=== PATIENT | female | born 1960 | race Two or more races ===

== ENCOUNTER → 2024-11-12 12:54 | Outpatient (REF) | payer OTHER, SELFPAY ==
--- NOTE | 2024-11-12 13:01 | CA_ITS ---
Transthoracic Echocardiogram Patient (Last, First, Middle): Deborah Bishop F Gender: Female Date of : 1960 Age: 64 Procedure Date: 11/12/2024 Procedure Type: Transthoracic Echocardiogram Location: OP Height: 175. cm Weight: 74.84 kg BSA: 1.90 m2 Heart Rate: 55 bpm BP: 125 / 60 mmHg [place]: JAMES Chacko MD: Az Lezama MD Accounts Payable Payroll Coordinator: Khoi Stout MD Symptoms: R06.09 HEREDIA Study Quality: Adequate ECG Rhythm: Bradycardia Conclusions: - Essentially normal study Findings Left Ventricle Normal left ventricular size, thickness, and systolic function. The visually estimated ejection fraction is between 65-70%. Spectral Doppler is indicative of a normal filling pattern. Right Ventricle Normal right ventricular cavity size and systolic function. Atria Both atria are normal in size. There is lipomatous hypertrophy of the interatrial septum. There is no evidence of interatrial shunt. Aortic Valve Normal aortic valve structure and function. There is no aortic valve stenosis. There is no aortic valve regurgitation. Mitral Valve Normal mitral valve structure and function. There is trace mitral valve regurgitation. There is no mitral valve stenosis. Pulmonic Valve The pulmonic valve is likely normal. Tricuspid Valve Normal tricuspid valve structure. There is trace tricuspid valve regurgitation. The right ventricular systolic pressure is normal. Normal right atrial pressure. There is no evidence of pulmonary hypertension. Great Vessels All visible segments of the aorta are normal in size. The pulmonary artery was not well visualized. Venous The inferior vena cava is normal in size and collapses greater than 50% with inspiration. Pericardium/Pleural There is no evidence of pericardial effusion. Prior Study Comparison No prior study available for comparison. Measurements 2D Linear Measurements IVSd: 0.95 0.6-0.9/0.6-1.0 cm LVIDd: 4.52 3.9-5.3/4.2-5.9 cm LVIDd Index: 2.38 2.4-3.2/2.2-3.1 cm/m2 LVIDs: 3.05 2.0-3.6 cm LVPWd: 0.82 0.7-1.1 cm LA Diam: 3.60 2.7-3.8/3.0-4.0 cm LAIDs Index: 1.89 1.5-2.3 cm/m2 LV Mass: 163.76 67-162/88-224 g LV Mass Index: 86.19 43-95/49-115 g/m2 LVOT Diam: 2.10 3.0+(-)1.3 cm 2D Systolic Function EF 4C: 74.00 >55% EF 2C: 66.30 >55% EF BiP: 70.50 >55% Mitral Valve MV Pk E: 0.96 MV PK A: 0.71 MV Decel Time: 160.00 E/A: 1.30 E'Lateral: 9.68 E'Medial: 6.96 E/E' Med: 13.80 E/E' Lat: 9.90 PHT: 47.00 MVA PHT: 4.68 Decel [place]: 5.97 Aortic Valve AoV Pk Jaspreet: 1.26 AoV Mn Jaspreet: 0.89 AoV VTI: 0.29 AoV Pk Grad: 6.00 Aov Mn Grad: 4.00 ROXY Cont.VTI: 2.77 LVOT LVOT Pk Jaspreet: 0.94 LVOT Mn Jaspreet: 0.67 LVOT VTI: 0.23 LVOT Pk Grad: 4.00 LVOT Mn Grad: 2.00 LVOT Diam: 2.10 LVOT Area: 3.46 Diastolic Function MV Pk E: 0.96 MV Pk A: 0.71 E/A: 1.30 E'Medial: 6.96 E/E' Med: 13.80 E' Laterial: 9.68 E/E' Lat: 9.90 Right Ventricle TAPSE (mm): 18.80 TVS' Jaspreet: 9.36 Tricuspid Valve TR Pk Jaspreet: 1.84 TR Pk Grad: 14.00 RA Press: 3.00 RVSP: 17.00 Great Vessels Aorta Sinus of Valsalva: 3.00 2.0-3.5 cm Ao Asc: 3.20 2.1-3.4 cm Ao Arch: 2.60 Pulmonary Valve PV Pk Jaspreet: 1.41 Peak PV Grad: 8.00 Updated in Other Vendor System with Status of Final Khoi Stout MD electronically signed on 11/12/2024 6:40:38 PM with status of Final
--- OUTSIDE RECORDS SUMMARY | 2024-11-12 15:07 | XMS_ITS | Data Portability ---
Author Organization [place] - [facility],, DANUTA SPANGLER MD Address [address] [address] Care Team Providers Care Airport Shuttle Driver Name Role Phone SYDNEE ALVARENGA Primary Care Provider [phone] Assessment No assessment recorded. Plan of Treatment Reminders Order Date Submit Date Provider Last Modified By Organization Details Last Modified Time Details Appointments None recorded . Lab cytology report, thin prep, smear or scraping , cervical or vaginal 2023 024 DARIEL [facility] (Centralized Electronic Ordering - All Locations), Patient Can Go To The Location Of Their Choice, [id number] 4 12:12:33 pap test, thinprep , cervical 2022 023 [facility] (Centralized Electronic Ordering - All Locations), Patient Can Go To The Location Of Their Choice, [address] 3 07:41:17 fecal occult blood, stool 2022 023 [email or web address] In-Office Order, Internal Use Only DO Not Attach Compendium DO Not Attach Compendium, Do Not Delete/merge, [id number] 3 09:14:54 pap test, thinprep , cervical 2021 022 [facility], Cytopathology Service, [address] [facility], [place], [address], 2 07:50:34 fecal occult blood, stool 2021 022 [email or web address] 1 In-Office Order, Internal Use Only DO Not Attach Compendium DO Not Attach Compendium, Do Not Delete/merge, [id number] 2 09:02:38 urinalys is, dipstick 2020 021 [email or web address] 1 In-Office Order, Internal Use Only DO Not Attach Compendium DO Not Attach Compendium, Do Not Delete/merge, [id number] 1 10:26:54 culture, urine 2020 021 ABILENE [facility], [address] [place], [address], 1 10:40:16 pap test, thinprep , cervical 2020 021 [facility], Cytopathology Service, [address] [place], [address], 1 07:49:12 fecal occult blood, stool 2020 021 [email or web address] 1 In-Office Order, Internal Use Only DO Not Attach Compendium DO Not Attach Compendium, Do Not Delete/merge, [id number] 1 10:26:54 Referral None recorded . Procedures None recorded . Surgeries None recorded . Imaging MAMMO, screenin g, digital, bilatera l - Breast Aspirati on and/or Biopsy if needed 2023 024 [facility], [address], [address], [place], [address], 4 10:00:30 MAMMO, screenin g, digital, bilatera l - Breast Aspirati on and/or Biopsy if needed 2022 023 [facility], [address], [place], [address], 4 13:36:09 MAMMO, screenin g, digital, bilatera l 2021 022 [facility]), [address], [place], [address], 4 07:45:48 MAMMO, screenin g, digital, bilatera l 2020 021 [facility]), [address], [place], [address], 1 15:06:31 Medication Orders estradio l 0.01% (0.1 mg/gram) vaginal cream 2023 024 [facility], [address] [place] [address], [address], 4 09:26:45 estradio l 1 mg tablet 2023 024 [facility], [address] [place] [address], [address], 4 09:28:23 progeste ashley microniz ed 200 mg capsule 2023 024 [facility], [address] [place] [address], [address], 4 09:28:26 progeste ashley microniz ed 200 mg capsule 2022 023 [facility], [address] [place] [address], [address], 3 09:05:23 estradio l 1 mg tablet 2022 023 [facility], [address] [place] [address], [address], 3 09:05:24 progeste ashley microniz ed 200 mg capsule 2021 022 [facility], [address] [place] [address], [address], 2 09:03:03 estradio l 1 mg tablet 2021 022 [facility], [address] [place] [address], [place], [address], 09:03:05 estradio l 1 mg tablet 2020 021 [facility] #[id number], [address] [place], [address], 10:26:57 progeste ashley barcenas ed 200 mg capsule 2020 021 [facility] #[id number], [address] [place], [address], 10:26:57 Patient TargetsNo targets recorded. Patient Instructions Encounter Date Encounter Id Patient Instructions Last Modified By Organization Details Last Modified Time 11/13/2020 [id number] urinary tract infection in women information Not available 11/13/2020 10:26:54 learning about healthy weight Not available 11/13/2020 10:26:54 She is here for annual exam, is doing well on the HRT and elects to continue. She appears to be doing well. We discussed having her continue to take hormone replacement therapy. We discussed the need to take a progestin if a uterus is present, and the rationale behind that. We discussed the stated risks of one in 10,000 of development of a blood clot/DVT/PE that could be life threatening. We discussed the Women's Health Initiative study and the findings. We discused the PEPPI study as well. She is aware that there are conflicting reports in the medical literature concerning the risks and benefits of HRT. We disussed that women are advised by ACOG to take HRT in the lowest dose necessary, and for the shortest time necessary, to control their symptoms. After a long discussion of the potential risks and benefits of HRT she elects to continue HRT. All questions were answered. Rx for HRT is called in to the pharmacy. Call if any vaginal bleeding occurs upon initiation of HRT, or at any time postmenopausally. kristi Not available 11/13/2020 10:27:19 11/15/2021 [id number] learning about healthy weight Not available 11/15/2021 09:02:38 She is here for annual exam, is doing well on the HRT and elects to continue. She started HRT in 2013. She is going to try to wean down to 0.5 mg of estradiol daily in the wintertime and see if this dose works for her. We discussed having her continue to take hormone replacement therapy. We discussed the need to take a progestin if a uterus is present, and the rationale behind that. We discussed the stated risks of one in 10,000 of development of a blood clot/DVT/PE that could be life threatening. We discussed the Women's Health Initiative study and the findings. We discused the PEPPI study as well. She is aware that there are conflicting reports in the medical literature concerning the risks and benefits of HRT. We disussed that women are advised by ACOG to take HRT in the lowest dose necessary, and for the shortest time necessary, to control their symptoms. After a long discussion of the potential risks and benefits of HRT she elects to continue HRT. All questions were answered. Rx for HRT is called in to the pharmacy. Call if any vaginal bleeding occurs upon initiation of HRT, or at any time postmenopausally. Not available 11/15/2021 09:04:01 11/16/2022 [id number] learning about healthy weight Not available 11/16/2022 09:04:55 She is here for annual, doing well on her HRT. __ Note from 2021: She is here for annual exam, is doing well on the HRT and elects to continue. She started HRT in 2013. She is going to try to wean down to 0.5 mg of estradiol daily in the wintertime and see if this dose works for her. We discussed having her continue to take hormone replacement therapy. We discussed the need to take a progestin if a uterus is present, and the rationale behind that. We discussed the stated risks of one in 10,000 of development of a blood clot/DVT/PE that could be life threatening. We discussed the Women's Health Initiative study and the findings. We discused the PEPPI study as well. She is aware that there are conflicting reports in the medical literature concerning the risks and benefits of HRT. We disussed that women are advised by ACOG to take HRT in the lowest dose necessary, and for the shortest time necessary, to control their symptoms. After a long discussion of the potential risks and benefits of HRT she elects to continue HRT. All questions were answered. Rx for HRT is called in to the pharmacy. Call if any vaginal bleeding occurs upon initiation of HRT, or at any time postmenopausally. Not available 11/16/2022 09:05:08 11/20/2023 [id number] atrophic vaginitis: care instructions Not available 11/20/2023 09:29:07 learning about healthy weight Not available 11/20/2023 09:27:56 She is here for annual, doing well on her HRT, did not want to try going down to the 0.5 mg estradiol last year as she already doesn't have enough hormones some nights. She has started getting tears in the skin of the vaginal introitus after intercourse. note from 2022: She is here for annual, doing well on her HRT. __ Note from 2021: She is here for annual exam, is doing well on the HRT and elects to continue. She started HRT in 2013. She is going to try to wean down to 0.5 mg of estradiol daily in the wintertime and see if this dose works for her. She appears to be doing well. She will return for discussion of possibly adding in estradiol vaginally. We discussed having her continue to take hormone replacement therapy. We discussed the need to take a progestin if a uterus is present, and the rationale behind that. We discussed the stated risks of one in 10,000 of development of a blood clot/DVT/PE that could be life threatening. We discussed the Women's Health Initiative study and the findings. We discused the PEPPI study as well. She is aware that there are conflicting reports in the medical literature concerning the risks and benefits of HRT. We disussed that women are advised by ACOG to take HRT in the lowest dose necessary, and for the shortest time necessary, to control their symptoms. After a long discussion of the potential risks and benefits of HRT she elects to continue HRT. All questions were answered. Rx for HRT is called in to the pharmacy. Call if any vaginal bleeding occurs upon initiation of HRT, or at any time postmenopausally. haresh Not available 11/20/2023 09:28:50 12/14/2023 [id number] atrophic vaginitis: care instructions [email or web address] Not available 12/14/2023 09:26:19 She is here for a complaint of vaginal dryness and dyspareunia. She notes that they use a lubricant, but she still gets smal skin tears during intercourse. She would like to discuss possible vaginal estradiol therapy. We discussed the options of cream, tablets or ring and after discussion she prefers the cream. Risks and benefits discussed at length, all questions answered. Face to face discussion 25 minutes haresh Not available 12/14/2023 10:45:51 Reason for Referral None Reported. Results Created Date Observation Date Name Description Value Unit Range Abnormal Flag Note LastModifiedBy Organization Detail LastModifiedTime 11/14/19 21 11/13/2020 fecal occul t blood , stool Occult Blood negati ve Not Available In-Office Order Internal Use Only DO Not Attach Compendium DO Not Attach Compendium, Do Not Delete/merge, [id number] 11/13/2020 10:03:46 11/14/19 21 11/13/2020 cultu re, urine comments [facility], a membe r of [facility] [address] [place] [address] Medic al Dire susan fernandez MD NURSE D/O SOURC E: URINE ,NATALYA N CATCH ; Not Available [facility] [address] [place] [address], [address], 11/14/2020 10:40:15 11/14/19 21 11/14/2020 cultu re, urine urine culture [facility], a [facility] [address] [place] [address] Medic al Dire susan fernandez MD NURSE D/O COLLE CTION TIME: 2020 10:00 :00 AM -04:0 0 URINE CULTU RE No growt h F Not Available [facility] [address] [place], [address], 11/14/2020 10:40:15 11/14/19 21 11/13/2020 pap, LB [id number] ThinP rep Pap, Image d: NEGAT SWETHA FOR SQUAM OUS INTRA EPITH ELIAL LESIO N AND MALIG DELMY . Trinh Mal Rubio , CT( CP) (Case elect taylor rizzo magnolia d 11 19 2020) ADEQU ACY: Satis facto ry Endoc ervic al/tr ansfo rmati on zone compo nent absen t. SOURC E: ThinP rep Pap HPV IF Ascus : Refle x 16 and 18, Cervi maryanne, Image d CLINI MARYANNE INFOR MATIO N: HPV If Diagn osis of ASCUS . LPS neg, z12.4 , z01.4 19 Not Available [facility], Cytopathology Service [address] [place], [address], 11/20/2020 07:31:53 11/14/19 21 11/13/2020 urina lysis , dipst ick GLU Negati ve Not Available In-Office Order Internal Use Only DO Not Attach Compendium DO Not Attach Compendium, Do Not Delete/merge, [id number] 11/13/2020 10:04:15 11/14/19 21 11/13/2020 urina lysis , dipst ick MERCED Negati ve Not Available In-Office Order Internal Use Only DO Not Attach Compendium DO Not Attach Compendium, Do Not Delete/merge, 11/13/2020 10:04:15 11/14/19 21 11/13/2020 urina lysis , dipst ick KET Negati ve Not Available In-Office Order Internal Use Only DO Not Attach Compendium DO Not Attach Compendium, Do Not Delete/merge, 11/13/2020 10:04:15 11/14/19 21 11/13/2020 urina lysis , dipst ick SG 1.005 Not Available In-Office Order Internal Use Only DO Not Attach Compendium DO Not Attach Compendium, Do Not Delete/merge, [id number] 11/13/2020 10:04:15 11/14/19 21 11/13/2020 urina lysis , dipst ick BLO Hemoly zed : Trace Not Available In-Office Order Internal Use Only DO Not Attach Compendium DO Not Attach Compendium, Do Not Delete/merge, 11/13/2020 10:04:15 11/14/19 21 11/13/2020 urina lysis , dipst ick pH 6.0 Not Available In-Office Order Internal Use Only DO Not Attach Compendium DO Not Attach Compendium, Do Not Delete/merge, 11/13/2020 10:04:15 11/14/19 21 11/13/2020 urina lysis , dipst ick PRO Negati ve Not Available In-Office Order Internal Use Only DO Not Attach Compendium DO Not Attach Compendium, Do Not Delete/merge, 11/13/2020 10:04:15 11/14/19 21 11/13/2020 urina lysis , dipst ick URO 0.2 E.U. / dl Not Available In-Office Order Internal Use Only DO Not Attach Compendium DO Not Attach Compendium, Do Not Delete/merge, 11/13/2020 10:04:15 11/14/19 21 11/13/2020 urina lysis , dipst ick NIT negati ve Not Available In-Office Order Internal Use Only DO Not Attach Compendium DO Not Attach Compendium, Do Not Delete/merge, 11/13/2020 10:04:15 11/14/19 21 11/13/2020 urina lysis , dipst ick PERRI Negati ve Not Available In-Office Order Internal Use Only DO Not Attach Compendium DO Not Attach Compendium, Do Not Delete/merge, 11/13/2020 10:04:15 11/16/19 22 11/15/2021 PAP1C ASE [id number] ThinP rep Pap, Image d: NEGAT SWETHA FOR SQUAM OUS INTRA EPITH ELIAL LESIO N AND MALIG DELMY . Aysha Mcconnell hers , CT( CP) (Case elect taylor matthias magnolia d 11 23 2021) ADEQU ACY: Satis facto ry Endoc ervic al/tr ansfo rmati on zone compo nent absen t. SOURC E: ThinP rep Pap HPV IF Ascus : Refle x 16 and 18, Cervi maryanne, Image d CLINI MARYANNE INFOR DOMITILA N: HPV If Diagn osis of ASCUS . LPS neg, [z01. 419] Not Available [facility], Cytopathology Service [address] [place], [address], 11/23/2021 16:32:47 11/16/19 22 11/15/2021 fecal occul t blood , stool Occult Blood negati ve Not Available In-Office Order Internal Use Only DO Not Attach Compendium DO Not Attach Compendium, Do Not Delete/merge, [id number] 11/15/2021 08:47:47 11/17/19 23 11/16/2022 [facility] CYTOL OGY results Patinicolás nt Name: AMA BISHOP nt : 962 (Age: 62) Lab Acces marta #: [id number] Colle ction Date: 2022 Acces marta Date: 2022 Sign Out Date: 2022 Tissu e Sourc e: 1: THINP REP BALANCE RECESSER PAP TEST, CERVI MARYANNE: Final Diagn osis: NEGAT SWETHA FOR INTRA EPITH ELIAL LESIO N OR MALIG DELMY . Satis facto ry for evalu ation . Endoc ervic al/tr ansfo rmati on zone ABSEN T. Clini maryanne Histo ry: Date of Last Menst rual Perio d: not avail able Menst rual Histo ry: Post- menop ausal Contr acept swetha Histo ry: not avail able Ancil ellen Testi ng: HPV (ASCU S) Case image d by the ThinP rep Imagi ng Syste m with didi zaldivar or scot ceron Perfo rmed at [facility] ate Refer en[facility] Cytol [facility], [address] [place] Clini maryanne Histo ry (othe r): Z01.4 19 LPS 11-15 NEGAT SWETHA ROUTI VIRAJ Fernandez Phone #: [phone], On-[place] ll Patho logis t: [id number] Not Available [facility] (Centralized Electronic Ordering - All Locations) Patient Can Go To The Location Of Their Choice, [id number] 12/02/2022 15:33:15 11/17/19 23 11/16/2022 fecal occul t blood , stool Occult Blood negati ve Not Available In-Office Order Internal Use Only DO Not Attach Compendium DO Not Attach Compendium, Do Not Delete/merge, [id number] 11/16/2022 08:43:16 11/20/19 24 11/23/2023 IGP, RFX APTIM A HPV ASCU diagnosis: Levar POSADA FOR INTRA EPITH ELIAL SAJI Fernandez OR SUNNI BROCK . THIS SPECI MEN WAS RESCR EENED PART OF OUR QUALI TY CONTR OL PROGR AM. Not Available [facility] ([facility]) [address] [facility], [place], [address], 11/23/2023 12:12:33 11/20/19 24 11/23/2023 IGP, RFX APTIM A HPV ASCU specimen adequacy: Levar garcia Satis facto dima for evalu ation . No endoc ervic al compo nent is ident ified . The absen ce of an endoc ervic al compo nent was confi rmed by an addit ionelham kulkarni evalu ation . Not Available [facility] ([facility]) [address] [facility], [place], [address], 11/23/2023 12:12:33 11/20/19 24 11/23/2023 IGP, RFX APTIM A HPV ASCU clinician provided ICD10: Levar garcia Z01.4 19 Not Available [facility] ([facility]) [address] [facility], [place], [address], 11/23/2023 12:12:33 11/20/19 24 11/23/2023 IGP, RFX APTIM A HPV ASCU performed by: Commen t Jeffe ry A Prior , Cytot echno logis t (ASCP ) Not Available [facility] ([facility]) [address] [facility], [place], [address], 11/23/2023 12:12:33 11/20/19 24 11/23/2023 IGP, RFX APTIM A HPV ASCU QC reviewed by: Levar garcia There J Carmen y, Cytot echno logis t (ASCP ) Not Available [facility] ([facility]) [address] [facility], [place], [address], 11/23/2023 12:12:33 11/20/19 24 11/23/2023 IGP, RFX APTIM A HPV ASCU . . Not Available [facility] ([facility]) [address] [facility], [place], [address], 11/23/2023 12:12:33 11/20/19 24 11/23/2023 IGP, RFX APTIM A HPV ASCU note: Levar garcia The Pap smear is a scree shad test desig eleazar to aid in the detec tion of margarito ligna nt and malig nant condi tions of the uteri ne cervi x. It is not a diagn ostic proce dure and shoul d not be used as the sole means of detec ting cervi maryanne cance r. Both false -posi tive and false -nega tive repor ts do occur . Not Available [facility] ([facility]) [address] [facility], [place], [address], 11/23/2023 12:12:33 11/20/19 24 11/23/2023 IGP, RFX APTIM A HPV ASCU test methodology: Levar garcia This liqui d based ThinP rep(R ) pap test was scree eleazar with the use of an image guide amber wright. Not Available [facility] ([facility]) [address] [facility], [place], [address], 11/23/2023 12:12:33 11/20/19 24 11/23/2023 IGP, RFX APTIM A HPV ASCU . Commen t The HPV DNA refle x crite aly were not met with this speci men resul t there fore, no HPV testi ng was perfo rmed. Not Available [facility] ([facility]) [address] [facility], [place], [address], 11/23/2023 12:12:33 12/11/19 21 12/10/2020 MAMMO , scree shad, digit al, bilat eral No observ ation record ed. [facility] [address], [place], [address], 12/10/2020 15:41:16 07/26/19 24 07/26/2023 MAMMO , scree shad, digit al, bilat eral No observ ation record ed. [facility] [address], [place], [address], 07/27/2023 08:17:12 Result Notes None recorded. Problems Name Problem SNOMED Code Status Onset Date Resolution Date Notes Provider Name and Address Organization Details Recorded Time Dysfunctional uterine bleeding Active ELENA Ballard in [facility], 2 08:47:36 Postmenopausal bleeding 87754323 Active ELENA Ballard in [facility], 2 08:47:36 Menopausal syndrome 996795574 Active ELENA Ballard in [facility], 2 08:47:36 Acute lower urinary tract infection 020915057 Active ELENA Ballard in [facility], 2 08:47:36 Pain in pelvis 94643641 Active ELENA Ballard in [facility], 2 08:47:35 Oligoovulatory dysfunctional uterine bleeding 264195902 Active ELENA Ballard in [facility], 2 08:47:36 Intrauterine synechiae 298689008 Active ELENA Ballard in [facility], 2 08:47:36 Vertigo 571456688 Active 2016 ELENA Ballard in [facility], 2 08:47:36 Chronic anxiety 146743915 Active 2016 ELENA Ballard in [facility], 2 08:47:36 Atrophic vaginitis 48546409 Active 2023 Danuta Spangler MD [address], [place], [address], [place] - [facility], 4 09:28:58 Problem Notes None recorded. Procedures Surgical History Date Name Laterality Status Provider Name and Address Organization Details Recorded Time 4 Most Recent Mammogram completed Sandra Rossi in [facility], 11/13/2023 11:06:47 0 hammer toe operation completed Sandra Mcelroy [place] - [facility], 11/13/2020 10:13:37 5 Endometrial Biopsy completed Danuta Spangler MD [address], [place], [address], [place] - [facility], 11/04/2014 09:39:44 4 Endometrial Biopsy completed Danuta Spangler MD [address], [place], [address], [place] - [facility], 11/15/2013 14:55:19 8 Other completed Sandra Mcelroy [place] - [facility], 10/14/2013 09:43:18 2 Other completed Danuta Spangler MD [address], [place], [address], [place] - [facility], 10/14/2013 10:18:07 5 Tubal Ligation completed Sandra Rossi in [facility], 10/14/2013 09:43:18 Imaging Results None recorded. Procedure Notes None recorded. Medical Equipment None Reported. Allergies No known drug allergies Medications Name Sig Start Date Stop Date Status Note LastModified by Organization Details LastModified Time amoxicillin 500 mg capsule TAKE 1 CAPSULE BY MOUTH THREE TIMES A DAY FOR 7 DAYS 11/13 completed Not Available Not Available Not Available prednisone 10 mg tablet 11/13 completed Not Available Not Available Not Available clindamycin HCl 300 mg capsule TAKE 1 CAPSULE BY MOUTH 3 TIMES A DAY FOR 10 DAYS 11/13 completed Not Available Not Available Not Available ibuprofen 800 mg tablet active Not Available Not Available Not Available sulfamethox azole 400 mg-trimetho prim 80 mg tablet TAKE 1 TABLET BY MOUTH 2 TIMES A DAY. active Not Available Not Available No t Available meloxicam 15 mg tablet TAKE 1 TABLET BY MOUTH EVERY DAY WITH FOOD 11/15 completed Not Available Not Available Not Available prednisone 20 mg tablet TAKE 3 TABLETS BY MOUTH DAILY FOR 3 DAYS, THEN 2 TABS DAILY FOR 3 DAYS, THEN 1 TAB DAILY FOR 3 DAYS active Not Available Not Available No t Available clobetasol 0.05 % topical cream active Not Available Not Available Not Available clindamycin HCl 150 mg capsule TAKE 1 CAPSULE BY MOUTH TWICE A DAY FOR 10 DAYS 11/13 completed Not Available Not Available Not Available meclizine 12.5 mg tablet 11/09 completed Not Available Not Available Not Available ciprofloxac in 500 mg tablet active Not Available Not Available Not Available omeprazole 40 mg capsule,del ayed release active Not Available Not Available Not Available triamcinolo ne acetonide 0.1 % topical cream 11/09 completed Not Available Not Available Not Available ketorolac 10 mg tablet 11/09 completed Not Available Not Available Not Available estradiol 1 mg tablet TAKE 1 TABLET BY MOUTH EVERY DAY 2024 active Not Available Not Available Not Avai lable hydrocortis one valerate 0.2 % topical ointment 11/09 completed Not Available Not Available Not Available ciprofloxac in 0.3 % eye drops PLEASE SEE ATTACHED FOR DETAILED DIRECTION S 11/15 completed Not Available Not Available Not Available phenazopyri dine 100 mg tablet TAKE 1 TABLET BY MOUTH 3 TIMES A DAY 11/09 completed Not Available Not Available Not Available pantoprazol e 40 mg tablet,kim yed release TAKE 1 TABLET BY MOUTH EVERY DAY 11/16 completed Not Available Not Available Not Available erythromyci n 5 mg/gram (0.5 %) eye ointment APPLY 0.5 INCH TO RIGHT EYE 4 TIMES A DAY FOR 7 DAYS 11/15 completed Not Available Not Available Not Available oxycodone 5 mg capsule TAKE 1 CAPSULE BY MOUTH EVERY 6 HOURS FOR 3 DAYS NEEDED FOR PAIN 11/13 completed Not Available Not Available Not Available progesteron e micronized 200 mg capsule TAKE 1 CAPSULE BY MOUTH EVERY DAY AT BEDTIME 2024 active Not Available Not Available Not Avai lable gabapentin 300 mg capsule TAKE 1 CAPSULE BY MOUTH EVERYDAY AT BEDTIME 11/13 completed Not Available Not Available Not Available triamterene 37.5 mg-hydrochl orothiazide 25 mg tablet TAKE 1 TABLET BY MOUTH EVERY DAY 11/15 completed Not Available Not Available Not Available omeprazole 20 mg capsule,del ayed release active Not Available Not Available Not Available estradiol 0.01% (0.1 mg/gram) vaginal cream INSERT 1/2 GRAM VAGINALLY EVERY DAY 2024 active Not Available Not Available Not Avai lable neomycin 500 mg tablet TAKE 2 TABLETS BY MOUTH TWICE A DAY active Not Available Not Available No t Available albuterol sulfate HFA 90 mcg/actuati on aerosol inhaler TAKE 2 PUFFS BY MOUTH EVERY 6 HOURS NEEDED FOR WHEEZE 11/13 completed Not Available Not Available Not Available escitalopra m 10 mg tablet TAKE 1.5 TABLET BY MOUTH DAILY 11/19 completed Not Available Not Available Not Available escitalopra m 20 mg tablet active Not Available Not Available Not Available bupropion HCl XL 150 mg 24 hr tablet, extended release TAKE 1 TABLET BY MOUTH EVERY 24 HOURS active Not Available Not Available No t Available escitalopra m 5 mg tablet 11/09 completed Not Available Not Available Not Available nitrofurant oin monohydrate /macrocryst als 100 mg capsule TAKE ONE CAPSULE BY MOUTH TWICE A DAY FOR 7 DAYS 11/09 completed Not Available Not Available Not Available omeprazole 11/19 completed Not Available Not Available Not Available lubiproston e 24 mcg capsule 11/19 completed Not Available Not Available Not Available peg 3350-electr olytes 236 gram-22.74 gram-6.74 gram-5.86 gram solution active Not Available Not Available Not Available EpiPen 2-Dimitri 0.3 mg/0.3 mL injection, auto-inject or active Not Available Not Available Not Available Linzess 145 mcg capsule 11/19 completed Not Available Not Available Not Available Linzess 290 mcg capsule active Not Available Not Available Not Available Afluria 1734-1046(P F) 45 mcg (15 mcg x 3)/0.5 mL intramuscul ar syringe TO BE ADMINISTE RED BY PHARMACIS T FOR IMMUNIZAT ION 07/19 completed Not Available Not Available Not Available Fluarix Quad 7298-6845 (PF) 60 mcg (15 mcg x 4)/0.5 mL IM syringe TO BE ADMINISTE RED BY PHARMACIS T 07/19 completed Not Available Not Available Not Available Fluarix Quad 3064-7575 (PF) 60 mcg (15 mcg x 4)/0.5 mL IM syringe ADMINISTE RED BY [facility] 07/19 completed Not Available Not Available Not Available Clenpiq 10 mg-3.5 gram-12 gram/160 mL oral solution TAKE 160 ML BY MOUTH DIRECTED FOLLOW INSTRUCTI ONS PROVIDED BY DOCTOR IN OFFICE 11/13 completed Not Available Not Available Not Available Afluria Quad (PF) 60 mcg (15 mcg x 4)/0.5 mL IM syringe TO BE ADMINISTE RED BY PHARMACIS T FOR IMMUNIZAT ION active Not Available Not Available No t Available Motegrity 2 mg tablet active Not Available Not Available No t Available Vitals Date Recorded Body height Body mass index (BMI) Body weight Heart rate Systolic blood pressure Diastolic blood pressure Provider Name and Address Organization Details Last Updated DateTime 1 173.99 cm 25.2 kg/m2 36706.2 4 g 60 /min 115 mm[Hg] 51 mm[Hg] Sandra Mcelroy MA - [facility], 1 10:09:53 Date Recorded Body weight Body mass index (BMI) Body height Body temperature Heart rate Systolic blood pressure Diastolic blood pressure Provider Name and Address Organization Details Last Updated DateTime 2 95467.7 4 g 24.7 kg/m2 173.99 cm 97.3 [degF] 59 /min 114 mm[Hg] 50 mm[Hg] Sandra Rossi in [facility], 2 08:48:36 Date Recorded Body weight Body mass index (BMI) Body height Systolic blood pressure Diastolic blood pressure Provider Name and Address Organization Details Last Updated DateTime 11/16/2022 64654.86 g 22.5 kg/m2 173.99 cm 122 mm[Hg] 61 mm[Hg] Sandra Rossi in [facility], 3 08:45:26 Date Recorded Body height Body mass index (BMI) Body weight Body temperature Heart rate Systolic blood pressure Diastolic blood pressure Provider Name and Address Organization Details Last Updated DateTime 4 173.99 cm 24.8 kg/m2 39953.9 g 97.6 [degF] 64 /min 111 mm[Hg] 42 mm[Hg] megan Rossi in [facility], 4 09:02:52 Date Recorded Body height Body mass index (BMI) Body weight Body temperature Heart rate Systolic blood pressure Diastolic blood pressure Provider Name and Address Organization Details Last Updated DateTime 4 173.99 cm 24.7 kg/m2 99761.7 4 g 98 [degF] 61 /min 117 mm[Hg] 66 mm[Hg] megan Rossi in [facility], 4 09:02:22 Social History Question Answer Notes LastModified by Organizat ion Details LastModified Time Tobacco Smoking Status Never Smoker Not Available [facility] 04/07/2020 03:19:40 What Is Your Level Of Caffeine Consumption? Occasional [id number] Information not available 04/07/2020 In The 14 Days Before Symptom Onset, Have You Had Close Contact With A Laboratory-confir med COVID-19 While That Case Was Ill? No Information not available 11/15/2021 In The 14 Days Before Symptom Onset, Have You Had Close Contact With A Person Who Is Under Investigation For COVID-19 While That Person Was Ill? No Information not available 11/15/2021 Have You Been To An Area Known To Be High Risk For COVID-19? No Information not available 11/15/2021 What Type Of Diet Are You Following? REGULAR Stomach Issues Information not available 11/16/2022 Which Illicit Or Recreational Drugs Have You Used? No [id number] Information not available 04/07/2020 Do You Reside In Or Have You Traveled To An Area Where Ebola Virus Transmission Is Active? No [id number] Information not available 04/07/2020 Education 2 Year College Information not available 10/14/2013 What Is The Highest Grade Or Level Of School You Have Completed Or The Highest Degree You Have Received? [id number] Information not available 11/15/2021 How Many Days In The Past Year Have You Had A Heavy Drinking Consumption (4+ Female, 5+ Male)? 0 Information no t available 11/13/2020 Are There Any Guns Present In Your Home? No Information not available 11/15/2021 High Number Of Sexual Partners No Information not available 05/25/2016 To Which Gender Do You Self-identify? Female Information not available 05/25/2016 Marital Status Informatio n not available 10/14/2013 What Was The Date Of Your Most Recent Tobacco Screening? 12/14/2023 Information not available 12/14/2023 What Is Your Relationship Status? Information not available 11/15/2021 Are You Sexually Active? Yes [id number] Information not available 04/07/2020 How Much Tobacco Do You Smoke? No [id number] Information not available 04/07/2020 General Stress Level Low Information not available 11/13/2020 How Many Years Have You Smoked Tobacco? 0 [id number] Information not available 04/07/2020 Have You Recently (within The Last 12 Weeks, Or During A Current ) Traveled To Or Lived In A Zika-affected Area? No Information not available 05/25/2016 Sex: Female Functional Status Question Answer Note LastModified by Organizat ion Details LastModified Time Do you use any illicit or recreational drugs? No Information not available 11/15/2021 Do you or have you ever used any other forms of tobacco or nicotine? No Information not available 11/15/2021 What is your level of alcohol consumption? Occasional [id number] Information not available 04/07/2020 Do you or have you ever used smokeless tobacco? Never used smokeless tobacco [id number] Information not available 04/07/2020 Are you currently employed? 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 Never used electronic cigarettes [id number] Information not available 04/07/2020 What is your exercise level? Moderate [id number] Information not available 04/07/2020 Mental Status Question Answer Note LastModified by Organization D etails LastModified Time Do you feel stressed (tense, restless, nervous, or anxious, or unable to sleep at night)? [id number] Information not available 11/20/2023 Family History Relationship Description Onset Age of this Age Resolved Age Notes LastModified by Organization Details LastModified Time Mother Hypercholest erolemia Not available 12/2015 14:55:05 Mother Heart disease Not available 12/2015 14:55:05 Mother Hypertensive disorder Not available 12/2015 14:55:05 Mother Problem sister ..voca l cord acid in throat . [email or web address] Not available 11/14/2019 09:32:40 Father Diabetes mellitus Not available 12/2015 14:55:05 Father Hypercholest erolemia Not available 12/2015 14:55:05 Medical History Condition Response Anesthesia complications N High Blood Pressure N Candidate for MyRisk panel N Autoimmune Condition N Depression Y Lung Disease N Defects or Inherited Disease N History of Ovarian Cancer N BRCA testing in past N Anxiety Disorder Y Arthritis Y Infertility N History of Cancer N Endometriosis N Kidney or Bladder Problems N Thyroid Problems N GI Problems Y Anemia N History of Breast Cancer N NESTOR exposure N Osteopenia N Psychiatric Illness N Diabetes N Headaches or Migraines N Asthma Y Hepatitis N Heart Disease N Hypertension N Osteoporosis N Gynecological History Statement/Question Response Menses Monthly N If Post Menopausal, Age at Menopause 54 Age at Menarche 14 Current Control Method Tubal Ligat ion Most Recent Mammogram 07/26/2023 Age at First Child 30 Hormone Replacement Therapy Y Obstetrics History GPAL:G 2 P 2 0 0 2 Type Value Full Term 2 Living 2 Total 2 Immunizations Vaccine Type Date Status Note Provider Nam e and Address Organization Details Recorded Time Influenza, split virus, trivalent, preservative 4 completed Sandra underwood MA - Flo in [facility], 11/15/2021 08:47:36 influenza, unspecified formulation 6 completed Sandra underwood MA - [facility], 11/15/2021 08:47:36 Tdap 7 completed Sandra underwood MA - [facility], 11/15/2021 08:47:36 Influenza, split virus, quadrivalent, preservative 7 completed Sandra underwood MA - [facility], 11/15/2021 08:47:36 influenza, unspecified formulation 8 completed Sandra underwood MA - [facility], 11/15/2021 08:47:36 Influenza, split virus, quadrivalent, preservative 9 completed Sandra underwood MA - [facility], 11/15/2021 08:47:36 zoster recombinant 0 completed Sandra underwood MA - [facility], 11/15/2021 08:47:36 Influenza, split virus, quadrivalent, preservative 0 completed Sandra underwood MA - [facility], 11/15/2021 08:47:36 COVID-19, mRNA, LNP-S, PF, 100 mcg/0.5mL dose or 50 mcg/0.25mL dose 1 completed Sandra underwood MA - Flo in [facility], 11/15/2021 08:47:36 COVID-19, mRNA, LNP-S, PF, 100 mcg/0.5mL dose or 50 mcg/0.25mL dose 1 completed Sandra underwood MA - Flo in [facility], 11/15/2021 08:47:36 Influenza, split virus, quadrivalent, PF 6 completed ELENA Ballard in [facility], 11/15/2021 08:47:36 Past Encounters Encounter ID Performer Location Encounter Start Date Encounter Closed Date Diagnosis/Indication Diagnosis SNOMED-CT Code Diagnosis ICD10 Code Diagnosis Note [id number] MD DANUTA Barrett MD [address] [place] [address] 10/14/2013 09:11:11 10/14/2013 11:43:26 Specialized medical examination 83872112 Screening for malignant neoplasm of rectum 947831655 Screening mammography 55404297 Dysfunctio nal uterine bleeding 74555838 [id number] MD DANUTA Barrett MD [address] [place] [address] 11/15/2013 08:54:43 11/15/2013 16:51:23 Postmenopausal bleeding 48813707 [id number] MD DANUTA Barrett MD [address] [place] [address] 11/22/2013 10:18:59 11/22/2013 11:07:46 Menopausal syndrome 229503003 [id number] MD DANUTA Barrett MD [address] [place] [address] 10/15/2014 09:17:45 10/15/2014 11:06:25 Specialized medical examination 73851037 Screening for malignant neoplasm of rectum 942034007 Screening mammography 98164224 Acute lowe r urinary tract infection 798120279 Pain in pelvis 19742939 Menopausal syndrome 253851574 [id number] MD DANUTA Barrett MD [address] [place] [address] 11/04/2014 08:55:05 11/04/2014 10:53:12 Oligoovulatory dysfunctional uterine bleeding 216799161 [id number] MD DANUTA Barrett MD [address] [place] [address] 03/17/2015 09:34:45 03/17/2015 13:33:20 Dysfunctional uterine bleeding 38419374 N93.8 Pain in pelvis 97946020 R10.2 Intrauteri ne synechiae 723640329 N85.6 [id number] MD DANUTA Barrett MD [address] [place] [address] 11/10/2015 14:34:16 11/10/2015 15:57:59 Specialized medical examination 78706434 Z01.419 Screening for malignant neoplasm of rectum 473356711 Z12.12 Screening mammography 24 553787 Z12.31 [id number] MD DANUTA Barrett MD [address] [place] [address],[address] [address] 05/25/2016 09:44:36 05/25/2016 10:57:39 Acute lower urinary tract infection 445818124 R30.0 [id number] MD DANUTA Barrett MD [address] [place] [address] 11/09/2016 07:57:03 11/09/2016 10:29:36 Specialized medical examination 01315976 Z01.419 Screening for malignant neoplasm of rectum 353984570 Z12.12 Screening mammography 24 983801 Z12.31 Menopausal syndrome 1237 83486 N95.9 N95.1 Chronic anxiety 42448093 9 F41.1 [id number] MD DANUTA Barrett MD [address] [place] [address] 02/27/2017 09:55:40 02/27/2017 16:02:27 Acute lower urinary tract infection 882249724 R30.0 [id number] MD DANUTA Barrett MD [address] [place] [address] 11/09/2017 09:44:27 11/09/2017 12:04:12 Specialized medical examination 49817922 Z01.419 Screening for malignant neoplasm of rectum 561790293 Z12.12 Screening mammography 24 943191 Z12.31 Menopausal syndrome 1237 73162 N95.1 [id number] DanutaMD DANUTA Vicente MD [address] [place] [address] [place] [address] 07/19/2018 08:24:23 07/19/2018 15:17:55 Acute lower urinary tract infection 258470313 R30.0 Diverticulitis 811828632 K57.92 Pain in female pelvis 42 4098358 R10.2 [id number] MD DANUTA Barrett MD [address] [place] [address] [place] [address] 11/13/2018 07:57:43 11/13/2018 10:35:20 Specialized medical examination 69140110 Z01.419 Screening for malignant neoplasm of rectum 586197846 Z12.12 Screening mammography 24 624117 Z12.31 Menopausal syndrome 1237 39263 N95.1 [id number] MD DANUTA Barrett MD [address] [place], [place] [address] [address] 11/14/2019 09:23:46 11/14/2019 11:51:27 Specialized medical examination 83521144 Z01.419 Screening for malignant neoplasm of rectum 955083551 Z12.12 Screening mammography 24 390315 Z12.31 Menopausal syndrome 1237 64943 N95.1 [id number] MD DANUTA Barrett MD [address] [place] [address] [place] [address] 11/13/2020 10:00:33 11/13/2020 11:02:40 Specialized medical examination 96654929 Z01.419 Screening for malignant neoplasm of rectum 833128507 Z12.12 Screening mammography 24 255043 Z12.31 Acute lowe r urinary tract infection 583994672 R30.0 Menopausal syndrome 1237 20105 N95.1 [id number] MD DANUTA Barrett MD [address] [place] [address] [place] [address] 11/15/2021 08:43:20 11/15/2021 09:34:54 Specialized medical examination 47317417 Z01.419 Screening for malignant neoplasm of rectum 234753204 Z12.12 Screening mammography 24 188912 Z12.31 Menopausal syndrome 1237 09579 N95.1 [id number] MD DANUTA Barrett MD [address] [place] [address], [address] [facility] [address] 11/16/2022 08:42:48 11/16/2022 09:15:05 Specialized medical examination 83367926 Z01.419 Screening for malignant neoplasm of rectum 446173091 Z12.12 Screening mammography 24 060971 Z12.31 Menopausal syndrome 1237 85098 N95.1 [id number] MD DANUTA Barrett MD [address] [place], [place] [address]E [facility] [place] [address] 11/20/2023 08:59:10 11/20/2023 10:00:30 Specialized medical examination 68691380 Z01.419 Screening for malignant neoplasm of rectum 160396412 Z12.12 Screening mammography 24 532903 Z12.31 Menopausal syndrome 1237 44957 N95.1 Atrophic vaginitis 29876 000 N95.2 [id number] MD DANUTA Barrett MD [address] [place] [address],[facility] [address] 12/14/2023 08:57:00 12/14/2023 13:14:43 Atrophic vaginitis 14442784 N95.2 Health Concerns Section Related Observation LastModified by Organization Detai ls LastModified Time None Recorded Concern Status LastModified by Organization Details LastModified Time None Recorded Advance Directives Directive None Recorded Payers Encounter Date Sequence Insurance Name Policy Number Policy Alexandre Covered Member ID Alexandre Member ID Guarantor Name 11/13/2020 1 [facility] (POS) [id number] Eduin Tryba [id number] Deborah Tryba 11/13/2020 1 [place] [id number] Eduin Tryba [id number] Deborah Tryba 11/15/2021 1 [facility] (POS) [id number] Eduin Tryba [id number] Deborah Tryba 11/16/2022 1 [facility] (POS) [id number] Eduin Tryba [id number] Deborah Tryba 11/20/2023 1 [facility] (POS) [id number] Eduin Bishop [id number] Deborah Bishop 12/14/2023 1 [facility] (POS) [id number] Eduin Devriesba [id number] Deborah Bishop Notes Date Note Type Note Provider Name and Address Organization Details Recorded Time 11/13/2020 text/html She is here for annual exam, is doing well on the HRT and elects to continue. Danuta Spangler MD [address], [place], [address], [place] - [facility], 11/13/2020 10:28:14 11/15/2021 text/html She is here for annual exam, is doing well on the HRT and elects to continue. Danuta Spangler MD [address], [place], [address], [place] - [facility], 11/15/2021 09:04:24 11/16/2022 text/html She is here for annual, doing well on her HRT. Note from 2021: She is here for annual exam, is doing well on the HRT and elects to continue. She started HRT in 2013.She is going to try to wean down to 0.5 mg of estradiol daily in the wintertime and see if this dose works for her. Danuta Spangler MD [address], [place], [address], [place] - [facility], 11/16/2022 09:05:28 11/20/2023 text/html She is here for annual, doing well on her HRT, did not want to try going down to the 0.5 mg estradiol last year as she already doesn't have enough hormones some nights. She has started getting tears in the skin of the vaginal introitus after intercourse. note from 2022: She is here for annual, doing well on her HRT. Note from 2021: She is here for annual exam, is doing well on the HRT and elects to continue. She started HRT in 2013.She is going to try to wean down to 0.5 mg of estradiol daily in the wintertime and see if this dose works for her. Danuta Spangler MD [address], [place], [address], [place] - [facility] in [facility], 11/20/2023 09:29:28 12/14/2023 text/html She is here for a complaint of vaginal dryness and dyspareunia. She notes that they use a lubricant, but she still gets smal skin tears during intercourse. She would like to discuss possible vaginal estradiol therapy. Danuta Spangler MD [address], [place], [address], [place] - [facility], 12/14/2023 10:46:12 OBGyn Episode No OBEpisode recorded.
== END ==
LOC: HO.CARD 12:54
PROVIDERS: PCP Internal Medicine; Visit Provider Internal Medicine
DX: R06.09 Other forms of dyspnea (principal)
CPT/HCPCS: 93306

== ENCOUNTER → 2024-11-12 13:01 | Outpatient (BNV) | payer OTHER, SELFPAY | PROVIDERS: PCP Internal Medicine; Visit Provider Internal Medicine Cardiovascular Disease | DX: I51.89 Other ill-defined heart diseases (principal) | CPT/HCPCS: 93306 ==